=== PATIENT | female | born 1985 | race Caucasian/White ===

== ENCOUNTER → 2019-06-16 | Outpatient (CLI) | payer OTHER | END | disposition home or self-care (01) | LOC: CARD 11:18 | PROVIDERS: ATTEND Family Medicine | DX: R07.9 Chest pain, unspecified (principal); I10 Essential (primary) hypertension | CPT/HCPCS: 93017 ==

== ENCOUNTER 2019-07-04 15:41 | Outpatient (CLI) | payer OTHER ==
[2019-07-04] MEDS ORDERED: ALPR0.25 PO (16:10)
[2019-07-04] MEDS ORDERED: FLUT9.9S NS (16:10)
[2019-07-04] MEDS ORDERED: ESOM40CA PO (16:10)
== END 2019-07-04 23:59 | disposition home or self-care (01) ==
LOC: STAR 15:41
PROVIDERS: ATTEND Orthopaedic Surgery
DX: Z02.9 Encounter for administrative examinations, unspecified (principal)

== ENCOUNTER 2019-07-10 05:53 | Day surgery (SDC) | payer OTHER ==
[~2019-07-10] VITALS: Ht 154.9 cm; Wt 73.0 kg
[~2019-07-10 05:53] MED LIST: ALPR0.25 PO; ESOM40CA PO; FLUT9.9S NS
[2019-07-10] MEDS ORDERED: LIDOCAINE/PF 1%-EPI 1:200K, 30 ML ONE (06:10)
[2019-07-10] MEDS ORDERED: BUPIVACAINE/PF 0.5% ONE (06:10)
[2019-07-10] MEDS ORDERED: EPINEPHRINE 1 MG/ML, 1ML ONE (06:10)
[2019-07-10 06:37] VITALS: BP 133/82
[2019-07-10] MEDS ORDERED: MIDAZOLAM 1 MG/ML, 2ML ONE (06:48)
[2019-07-10] MEDS ORDERED: FENTANYL PF 100 MCG/2ML ONE (06:48)
[2019-07-10] MEDS ORDERED: ACETAMINOPHEN 500 MG TABLET PO ONE (07:00)
[2019-07-10] MEDS ORDERED: SCOPOLAMINE PATCH, 1.5MG PATCH.TD72 TD ONE (07:00)
[2019-07-10] MEDS ORDERED: GABAPENTIN 300 MG CAPSULE PO ONE (07:00)
[2019-07-10] MEDS ORDERED: LACTATED RINGERS 1,000 ML IV SCH (07:06)
[2019-07-10] MEDS ORDERED: PROPOFOL 10 MG/ML, 20ML ONE (08:00)
[2019-07-10] MEDS ORDERED: PROMETHAZINE 25 MG SUPP PR PRN (08:00)
[2019-07-10] MEDS ORDERED: CEFAZOLIN 1,000 MG ONE (08:00)
[2019-07-10] MEDS ORDERED: FENTANYL PF 100 MCG/2ML IV PRN (08:00)
[2019-07-10] MEDS ORDERED: PROMETHAZINE 25 MG/ML, 1ML IV PRN (08:00)
[2019-07-10] MEDS ORDERED: ONDANSETRON 2MG/ML, 2ML IV PRN (08:00)
[2019-07-10] MEDS ORDERED: ONDANSETRON 2MG/ML, 2ML ONE (08:00)
[2019-07-10] MEDS ORDERED: DEXAMETHASONE 4 MG/ML, 1ML ONE (08:00)
[2019-07-10] MEDS ORDERED: ONDANSETRON ODT 8 MG PO PRN (08:00)
[2019-07-10] MEDS ORDERED: HYDROmorphone 2 MG/ML, 1ML IVPush PRN (08:00)
[2019-07-10] MEDS ORDERED: OXYcodone 5 MG/5 ML ORAL.SOL UDC PO PRN (08:00)
[2019-07-10 08:44] LABS: HCG UR SG 1.024 (1.003-1.030)
[2019-07-10] MEDS ORDERED: TEMPLATE NON-FORMULARY MED. (Esomeprazole Magnesium** (Nexium**) 40 MG) PO SCH (09:00)
[2019-07-10] MEDS ORDERED: TEMPLATE NON-FORMULARY MED. (Fluticasone Propionate (Flonase Allergy Relief) 1 SPR) NS SCH (09:00)
[2019-07-10] MEDS ORDERED: OXYcodone IR 5MG TABLET ONE (09:45)
== END 2019-07-10 10:25 | disposition home or self-care (01) ==
LOC: OUT 05:53
PROVIDERS: ATTEND Orthopaedic Surgery
DX: M94.261 Chondromalacia, right knee (principal); M67.51 Plica syndrome, right knee; K21.9 Gastro-esophageal reflux disease without esophagitis; F15.90 Other stimulant use, unspecified, uncomplicated
CPT/HCPCS: 29875; 81025; J0171; J0690; J1100; J2250; J2405; J2704; J3010; J3490; J7120

== ENCOUNTER 2019-07-13 15:08 | Emergency (ER) | payer OTHER ==
[~2019-07-13] VITALS: Ht 154.9 cm; Wt 73.0 kg
[2019-07-13] MEDS ORDERED: nuvaring (15:21)
--- NOTE | 2019-07-13 15:27 | NUR ---
pt to ed for posterior, right calf pain during movement with trace edema. pt had right knee arthroscopy 3 days ago. cms intact. 2+ pulses in bilateral dp. pt denies trauma. pt connected to monitors. vss. Dr. Feliz to bs for assessment. awaiting orders.
[2019-07-13] MEDS ORDERED: KETOROLAC 30 MG/1 ML IM ONE (15:30)
--- NOTE | 2019-07-13 15:56 | NUR ---
us to bs.
[2019-07-13] MEDS ORDERED: KETOROLAC 30 MG/1 ML ONE (16:07)
--- NOTE | 2019-07-13 16:14 | NUR ---
pt resting in room with family at bs. vss. us complete. pt medicated per mar. no needs expressed. call light within reach.
--- NOTE | 2019-07-13 16:31 | NUR ---
all results back at this time. chart up for recheck.
--- NOTE | 2019-07-13 17:04 | NUR ---
Dr. Lucy blount bs to update on results and poc. vss. piv established and labs drawn. no needs expressed. call light within reach. awaiting ct.
[2019-07-13 17:20] LABS: BASOPHILS # (AUTO) 0.05 x10^3/uL (0-0.1); BASOPHILS % (AUTO) 0 % (0-1); EOSINOPHILS # (AUTO) 0.21 x10^3/uL (0-0.4); EOSINOPHILS % (AUTO) 1 % (1-7); INTERNATIONAL NORMALIZED RATIO 1.07 (0.93-1.1); LYMPHOCYTES % (AUTO) 26 % (22-44); MD NO; MEAN CORPUSCULAR HEMOGLOBIN 28.2 pg (27.0-34.8); MEAN CORPUSCULAR HGB CONC 32.5 g/dL (32.4-35.8); MEAN CORPUSCULAR VOLUME 86.6 fL (80-100); MEAN PLATELET VOLUME 9.7 fL (7.4-10.4); MONOCYTES # (AUTO) 0.75 x10^3/uL (0.2-0.8); MONOCYTES % (AUTO) 5 % (2-9); NEUTROPHILS # (AUTO) 10.33 x10^3/uL (1.8-6.8); NEUTROPHILS % (AUTO) 68 % (42-75); PLATELET COUNT 219 x10^3/uL (130-400); PROTHROMBIN TIME 11.2 Seconds (9.6-11.5); RED BLOOD COUNT 5.17 x10^6/uL (3.82-5.3); RED CELL DISTRIBUTION WIDTH 14.4 % (9.6-15.2)
[2019-07-13 17:23] LABS: ALBUMIN 3.8 g/dL (3.4-5.0); ANION GAP 6 mmol/L (5-15); CALCIUM 9.4 mg/dL (8.5-10.1); CHLORIDE 110 mmol/L (98-107); CREATININE 0.72 mg/dL (0.55-1.02)
--- NOTE | 2019-07-13 18:05 | NUR ---
pt resting in room with family at bs. vss. no needs expressed. call light within reach. pt to ct at this time.
[2019-07-13] MEDS ORDERED: OMNIPAQUE 350 MG/ML, 100ML BOTTLE ONE (18:24)
--- NOTE | 2019-07-13 18:42 | NUR ---
PT BACK FROM CTA. NO NEEDS AT THIS TIME.
[2019-07-13 19:01] VITALS: BP 125/65
--- NOTE | 2019-07-13 19:02 | NUR ---
PT RESTING IN ROOM WITH FAMILY AT BS. VSS. NO NEEDS EXPRESSED. CTA RESULTS CALLED TO DR. CHEEMA. UNKNOWN IF REPEAT CTA IS NEEDED AT THIS TIME.
[2019-07-13] MEDS ORDERED: APIXABAN 5 MG TABLET ONE (19:10)
--- NOTE | 2019-07-13 19:18 | NUR ---
PT MEDICATED PER MAR.
[2019-07-13] MEDS ORDERED: APIXABAN 5 MG TABLET PO ONE (19:30)
== END 2019-07-13 19:44 | disposition home or self-care (01) ==
LOC: ED 16:27
DX: I82.411 Acute embolism and thrombosis of right femoral vein (principal)
CPT/HCPCS: 36415; 71275; 80048; 82040; 84703; 85025; 85610; 93971; 96372; 99284; J1885; Q9967

== ENCOUNTER → 2019-08-12 | Outpatient (CLI) | payer OTHER ==
[~2019-08-12] MED LIST changes: +OMNIPAQUE 350 MG/ML, 100ML BOTTLE ONE; +nuvaring
== END | disposition home or self-care (01) ==
LOC: CFH 09:27
PROVIDERS: ATTEND Family Medicine
DX: R07.89 Other chest pain (principal); R06.00 Dyspnea, unspecified
CPT/HCPCS: 71275; Q9967